=== PATIENT | female | born 1975 | race Caucasian/White ===

== ENCOUNTER 2021-03-29 16:26 | Emergency (ER) | payer OTHER ==
[~2021-03-29] VITALS: Ht 170.2 cm; Wt 63.5 kg
[2021-03-29] MEDS ORDERED: MEDROLDOSEPACK PO (17:31)
[2021-03-29 17:52] VITALS: BP 122/67
== END 2021-03-29 17:52 | disposition home or self-care (01) ==
LOC: ER 16:26
DX: S50.02XA Contusion of left elbow, initial encounter (principal); M54.10 Radiculopathy, site unspecified; E03.9 Hypothyroidism, unspecified; Z98.890 Other specified postprocedural states; W01.0XXA Fall on same level from slipping, tripping and stumbling without subsequent striking against object, initial encounter; Y93.89 Activity, other specified; Y92.89 Other specified places as the place of occurrence of the external cause; Y99.8 Other external cause status

== ENCOUNTER 2021-10-08 10:35 | Emergency (ER) | payer OTHER ==
[~2021-10-08] VITALS: Ht 170.2 cm; Wt 63.5 kg
[~2021-10-08 10:35] MED LIST: MEDROLDOSEPACK PO
[2021-10-08 11:19] VITALS: BP 155/65
[2021-10-08 12:12] LABS: URINE BILIRUBIN NEGATIVE (Negative); URINE BLOOD NEGATIVE (Negative); URINE CLARITY CLEAR; URINE COLOR YELLOW; URINE GLUCOSE-RANDOM* NEGATIVE (Negative); URINE KETONES NEGATIVE (Negative); URINE LEUKOCYTES-REFLEX NEGATIVE (Negative); URINE NITRITE-REFLEX NEGATIVE (Negative); URINE PROTEIN (DIPSTICK) NEGATIVE (Negative); URINE UROBILINOGEN 0.2 E.U./dl (0.2-1.0)
[2021-10-08] MEDS ORDERED: ZOFRAN ODT4 MG PO (12:23)
== END 2021-10-08 14:32 | disposition home or self-care (01) ==
LOC: ER 10:35
PROVIDERS: Nurse Practitioner
DX: U07.1 COVID-19 (principal); R11.2 Nausea with vomiting, unspecified; E03.9 Hypothyroidism, unspecified; Z88.5 Allergy status to narcotic agent